=== PATIENT | male | born 1960 | race Two or more races ===

== ENCOUNTER 2018-02-23 07:13 | Emergency (ER) | payer MEDICARE, OTHER ==
[~2018-02-23] VITALS: Ht 175.3 cm; Wt 127.0 kg
[2018-02-23] MEDS ORDERED: PROCARDIA XL60 MG PO (07:33)
[2018-02-23] MEDS ORDERED: VICTOZA 2-0.6 MG/0.1 SUB-Q (07:34)
[2018-02-23] MEDS ORDERED: K-TAB ER20 MEQ PO (07:34)
[2018-02-23] MEDS ORDERED: MICARDIS80 MG PO (07:34)
[2018-02-23] MEDS ORDERED: LASIX20 MG PO (07:35)
[2018-02-23] MEDS ORDERED: LEVOTHYROXINE25 MCG PO (07:35)
[2018-02-23] MEDS ORDERED: NOVOLOG FL100 UNIT/1 SUB-Q (07:36)
[2018-02-23] MEDS ORDERED: OXYCODONE HCL10 MG PO (07:37)
--- OUTSIDE RECORDS SUMMARY | 2018-02-23 09:14 | XMS ---
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 No recent Security Events currently on file CRITERIA MET - 6 ED Visits in 6 Months - [facility] [place] - Has Care Guidelines - [facility] [place] - 3 Facilities in 90 Days - PDMP - [facility] [place] - 2 Visits in 30 Days CARE PROVIDERS MEJIA CALIX Physician Data Center Engineer Current PHONE: [phone] MEJIA CALIX Primary Care Current PHONE: Unknown Guidelines Source: [facility] Guidelines Date: 12/13/2017 Care Recommendation: Care Recommendation: Reason for establishing care guidelines: this patient has been identified as having at least 5 Emergency Department visits in [facility] in the 12 months immediately preceding the date these guidelines were entered.\\T\\nbsp;\\T\\nbsp; This care plan reflects only preliminary care guidelines.\\T\\nbsp; Providers should exercise clinical judgement when providing care.\\T\\nbsp; Contact your emergency department Actuarial Analyst for further assistance. Primary Care Physician:\\T\\nbsp;\\T\\nbsp;\\T\\nbsp;No PCP.\\T\\nbsp; Assist Pt in establishing with a PCP when presenting to the ED. Past Medical History:\\T\\nbsp; Bursitis, Cervical Radiculitis, Depression, DM II, Diabetic Nephropathy, DJD, Heart Disease, Hip Pain, Hyperlipidemia, Hypertension, Insomnia, Osteoarthritis, RLS, Sleep Apnea Past Surgical History:\\T\\nbsp; Carpal Tunnel Release, Caudal Block, Cholecystectomy, Colonoscopy, shoulder surgery Problem List: Educate patient regarding the proper use of the Emergency Room.\\T\\ nbsp; Redirect patient to him/her PCP for care that does not require the use of the Emergency Department. Please contact your facility\\T\\rsquo;s Case Management department if further intervention is needed in the care of this patient. It may be appropriate for this patient to seek care at an Urgent Care Center instead of the Emergency Room, please offer this alternate plan to the patient and provide list of Urgent Care Clinics. Substance Abuse:\\T\\nbsp; None Noted Mental Health:\\ T\\nbsp; History of Depression.\\T\\nbsp; Refer to outpatient mental health resources as appropriate. Pain/Opioid Agreement: Please use the [facility] Prescription Monitoring Program for specifics related to pt\\T\\rsquo;s use of narcotics medications.\\T\\nbsp; https://secureaccess.wv.gov E.D. VISIT COUNT (12 MO.) 1 Ovidio Balderas 4 [facility] 2 Beth Wallace 1 [facility] 1 LISETH Penn TOTAL 9 NOTE: Visits indicate total known visits. ED/C VISIT TRACKING (12 MO.) 02/23/2018 07:14 LISETH Blackmon TYPE: Emergency COMPLAINT: - BLOOD PRESSURE PROBLEM/BLOOD SUGAR PROBLEM 01/26/2018 16:34 [facility] [place] TYPE: Emergency DIAGNOSES: - patient will not say - Leg Pain - Hyperglycemia, unspecified - Other injury of unspecified body region, initial encounter 01/05/2018 01:25 Beth NORTON TYPE: Emergency COMPLAINT: - RT SIDE PAIN 12/29/2017 17:46 Ovidio Balderas Oren [facility] TYPE: Emergency COMPLAINT: - SHORTNESS OF BREATH - SHORTNESS OF BREATH DIAGNOSES: 0. Shortness of breath 1. Dyspnea, unspecified 3. Type 2 diabetes mellitus without complications 4. Unspecified asthma, uncomplicated 5. Allergy status to other drugs, medicaments and biological substances status 6. Other ocean transportation intermediary (current) drug therapy 7. assisted (current) use of aspirin [facility] DIAGNOSES: - Acute pharyngitis, unspecified - "for the past hour I've been having chest pressure." - Other viral agents as the cause of diseases classified elsewhere - Acute upper respiratory infection, unspecified - Chest Pain - Chest pain, unspecified 11/19/2017 01:15 Beth NORTON TYPE: Emergency COMPLAINT: - SORE THROAT AND EAR PAIN 08/10/2017 04:43 [facility] TYPE: Emergency DIAGNOSES: - Fever- 9 Weeks To 74 Years - Shortness of Breath - Leg Pain - Elevated blood-pressure reading, without diagnosis of hypertension - Acute bronchospasm - Pain in right lower leg 07/23/2017 19:24 [facility] TYPE: Emergency DIAGNOSES: - Shortness of Breath - Chest Pain - Dizziness 03/30/2017 18:52 [facility] TYPE: Emergency DIAGNOSES: - Generalized abdominal pain - Groin Pain - Drug induced constipation - Abdominal Pain - Sebaceous cyst INPATIENT VISIT TRACKING (12 MO.) No inpatient visits to display in this time frame [email or web address]
--- NOTE | 2018-02-23 19:31 | EKG ---
[facility] [address] [place], [place] [address] Signed Normal sinus rhythm Right bundle branch block Abnormal ECG No previous ECGs available Confirmed by VENITA ESPOSITO DO ([id number]) on 02/23/2018 7:31:18 PM Electronically Signed By: VENITA ESPOSITO DO 02/23/181930 PATIENT NAME: BUFFY NEGRO Electrocardiogram DATE OF : 64 PHYSICIAN: VENITA ESPOSITO DO REPORT #: [id number] REPORT IS CONFIDENTIAL AND NOT TO BE RELEASED WITHOUT AUTHORIZATION
== END 2018-02-23 08:55 | disposition home or self-care (01) ==
LOC: ED 07:13
DX: R07.9 Chest pain, unspecified (principal); Z76.0 Encounter for issue of repeat prescription; Z88.8 Allergy status to other drugs, medicaments and biological substances; Z88.6 Allergy status to analgesic agent; Z79.899 Other long term (current) drug therapy; Z79.891 Long term (current) use of opiate analgesic; Z79.4 Long term (current) use of insulin
CPT/HCPCS: 71045; 80048; 84484; 85025; 96372; 96374; 99283; J1815; J2405